=== PATIENT | male | born 1950 | race African-American/Black ===

== ENCOUNTER 2017-06-04 09:48 | Outpatient (RCR) | payer MEDICARE ==
[2017-06-04] MEDS ORDERED: LIDOCAINE VISC 2% SOLN 15 ML UDC ONE (12:43)
== END 2017-06-23 ==
LOC: WCC 09:48
PROVIDERS: ATTEND Family Medicine Adult Medicine
DX: I87.332 Chronic venous hypertension (idiopathic) with ulcer and inflammation of left lower extremity (principal); L97.821 Non-pressure chronic ulcer of other part of left lower leg limited to breakdown of skin; G89.29 Other chronic pain; R60.0 Localized edema; I89.0 Lymphedema, not elsewhere classified; M10.9 Gout, unspecified; N18.3 Chronic kidney disease, stage 3 (moderate); I10 Essential (primary) hypertension; I70.203 Unspecified atherosclerosis of native arteries of extremities, bilateral legs; I87.2 Venous insufficiency (chronic) (peripheral); L40.50 Arthropathic psoriasis, unspecified; L40.9 Psoriasis, unspecified; M17.12 Unilateral primary osteoarthritis, left knee; M48.061 Spinal stenosis, lumbar region without neurogenic claudication
CPT/HCPCS: 11042; G0463